=== PATIENT | female | born 1985 | race Caucasian/White ===

== ENCOUNTER 2019-06-22 09:58 | Emergency (ER) | payer MEDICAID, OTHER ==
[~2019-06-22] VITALS: Ht 167.6 cm; Wt 76.7 kg
[~2019-06-22 09:58] MED LIST: SITA100T8 PO; TRAM50TA3 PO; [UNRECOGNIZED DRUG - CODE] PO
--- NOTE | 2019-06-22 10:08 | NUR ---
PT TO ER BED1
[2019-06-22 10:11] VITALS: BP 130/83
--- NOTE | 2019-06-22 10:42 | NUR ---
PT SITTING ON BED CO VAGINAL PAIN AND BLEEDING. URINE CUP GIVEN TRYING TO COLLECTE URINE. NO ACUTE DISTRESS. VS STABLE.
[2019-06-22 10:45] LABS: BASOPHILS % (AUTO) 0.4 % (0.0-2.0); EOSINOPHILS % (AUTO) 0.3 % (0.0-4.0); HEMATOCRIT 31.5 % (36-48); LYMPHOCYTES # (AUTO) 0.8 K/uL (2.5-16.5); LYMPHOCYTES % (AUTO) 6.7 % (20.5-51.1); MEAN CORPUSCULAR HEMOGLOBIN 25 pg (27-31); MEAN CORPUSCULAR HGB CONC 32 g/dL (33-37); MEAN CORPUSCULAR VOLUME 78.9 fL (80-94); MONOCYTES # (AUTO) 0.4 K/uL (0.8-1.0); MONOCYTES % (AUTO) 3.9 % (1.7-9.3); NEUTROPHILS # (AUTO) 10.1 K/uL (1.8-7.7); NEUTROPHILS % (AUTO) 88.7 % (42.2-75.2); PLATELET COUNT (AUTO) 298 K/uL (140-450); RED BLOOD CELL COUNT(AUTO) 3.99 MIL/uL (4.20-5.40); RED CELL DISTRIBUTION WIDTH 15.5 % (11.6-13.7); WHITE BLOOD COUNT (AUTO) 11.4 K/uL (4.8-10.8)
[2019-06-22 11:16] LABS: ANION GAP 13.8 (8-16); CARBON DIOXIDE 23.7 mmol/L (21-32); CREATININE 0.5 mg/dL (0.6-1.3); POTASSIUM 3.5 mmol/L (3.5-5.1)
--- NOTE | 2019-06-22 11:17 | NUR ---
PT WENT TO BATHROOM, URINE SAMPLE WAS COLLECTED.
[2019-06-22] MEDS ORDERED: KETOROLAC 60 MG/2 ML VIAL IM ONE (13:10)
[2019-06-22 14:30] VITALS: BP 118/70
--- NOTE | 2019-06-22 14:30 | NUR ---
Patient discharged with v/s stable. Written and verbal after care instructions given and explained. Patient verbalized understanding. Ambulatory with to home. All questions addressed prior to discharge. Advised to follow up with PMD.
== END 2019-06-22 14:30 | disposition home or self-care (01) ==
LOC: MED 09:58
DX: N93.8 Other specified abnormal uterine and vaginal bleeding (principal); E11.9 Type 2 diabetes mellitus without complications; I10 Essential (primary) hypertension; F17.200 Nicotine dependence, unspecified, uncomplicated; Z98.890 Other specified postprocedural states; Z88.5 Allergy status to narcotic agent; Z88.8 Allergy status to other drugs, medicaments and biological substances
CPT/HCPCS: 36415; 80048; 81002; 81025; 85025; 96372; 99283; J1885

== ENCOUNTER 2019-07-06 20:36 | Emergency (ER) | payer MEDICAID ==
[~2019-07-06] VITALS: Ht 167.6 cm; Wt 76.2 kg
[2019-07-06 20:57] VITALS: BP 125/87
--- NOTE | 2019-07-06 21:06 | NUR ---
PT WHEELCHAIRED TO LOBBY. NOT ABLE TO PROVIDE URINE SAMPLE AT THIS TIME
--- NOTE | 2019-07-06 21:35 | NUR ---
PT WAS TAKEN TO BED 05 BY IN A WHEEL CHAIR
--- NOTE | 2019-07-06 21:40 | NUR ---
33Y FEMALE, BIB TO ED, C/O ABD PAIN RADIATING TO BACK 07/09 WITH VAGINAL BLEEDING SINCE 06/12 WITH USE OF 11 SANITARY PADS DAILY. DENIES N/V/FEVER/CHILLS. PT ON TRAMADOL, NEUROTIN NEEDED PER PT REPORT WITH SOME RELIEF. PT WAS HERE BEFORE DUE TO SAME ISSUE. PT AAOX4, RR EVEN UNLABORED, GCS 15, EDMD MADE AWARE WILL CONTINUE TO MONITOR CLOSELY, BED LOCKED IN LOWEST POSITION, SIDERAIL UPX2. HX- DM, SCIATICA, MUSCLE SPASM, CARPAL TUNNEL SYNDROME ALLERGY- METFORMIN, MORPHINE
[2019-07-06] MEDS ORDERED: KETOROLAC 30 MG/ML VIAL IVP ONE (21:45)
[2019-07-06 22:52] LABS: BASOPHILS # (AUTO) 0.1 K/uL (0.00-0.22); BASOPHILS % (AUTO) 0.5 % (0.0-2.0); EOSINOPHILS # (AUTO) 0.1 K/uL (0-0.4); EOSINOPHILS % (AUTO) 0.6 % (0.0-4.0); HEMATOCRIT 30.8 % (36-48); HEMOGLOBIN 9.6 g/dL (12.0-16.0); LYMPHOCYTES # (AUTO) 1.2 K/uL (2.5-16.5); MEAN CORPUSCULAR HEMOGLOBIN 24 pg (27-31); MEAN CORPUSCULAR HGB CONC 31 g/dL (33-37); MONOCYTES # (AUTO) 0.8 K/uL (0.8-1.0); MONOCYTES % (AUTO) 5.3 % (1.7-9.3); NEUTROPHILS % (AUTO) 85.8 % (42.2-75.2); PLATELET COUNT (AUTO) 448 K/uL (140-450); RED BLOOD CELL COUNT(AUTO) 3.95 MIL/uL (4.20-5.40); RED CELL DISTRIBUTION WIDTH 15.1 % (11.6-13.7); WHITE BLOOD COUNT (AUTO) 15.1 K/uL (4.8-10.8)
[2019-07-06 23:13] LABS: ALBUMIN 3.6 g/dL (3.4-5.0); CREATININE 0.7 mg/dL (0.6-1.3); TOTAL BILIRUBIN 0.4 mg/dL (0.0-1.0)
[2019-07-06 23:46] VITALS: BP 120/80
--- NOTE | 2019-07-06 23:46 | NUR ---
Patient discharged by Dr. Arteaga, with v/s stable and written and verbal after care instructions given and explained by Dr. Arteaga. Accompanied by , patient ambulatory with steady gait. All questions addressed prior to discharge. ID band removed. Patient advised to follow up with PMD. Rx of Provera 10mg given. Patient educated on indication of medication including possible reaction and side effects. Opportunity to ask questions provided and answered.
[2019-07-06 23:50] LABS: LYMPHOCYTES % (AUTO) 7.8 % (20.5-51.1)
[2019-07-07 00:34] LABS: PROTHROMBIN TIME 9.3 secs (10.8-13.4)
== END 2019-07-06 23:46 | disposition home or self-care (01) ==
LOC: MED 20:36
DX: N93.8 Other specified abnormal uterine and vaginal bleeding (principal); M43.6 Torticollis; E11.9 Type 2 diabetes mellitus without complications; I10 Essential (primary) hypertension; Z79.899 Other long term (current) drug therapy; Z88.5 Allergy status to narcotic agent; Z88.8 Allergy status to other drugs, medicaments and biological substances; I25.2 Old myocardial infarction
CPT/HCPCS: 36415; 76856; 80053; 81002; 81025; 85025; 85610; 85730; 86900; 86901; 96374; 99284; J1885; Q0092